=== PATIENT | male | born 1955 | race Caucasian/White ===

== ENCOUNTER 2020-09-03 22:35 | Emergency (ER) | payer MEDICARE, OTHER, SELFPAY ==
[2020-09-03 22:36] VITALS: BP 170/85; PULSE 108; RESP 27; TEMP 37.1; O2SAT 98; BMI 31.8
[2020-09-03 22:41] VITALS: BP 170/85; PULSE 107; RESP 25; TEMP 37.1; O2SAT 99
--- NOTE | 2020-09-03 23:07 | RAD_ITS ---
HISTORY: SOBHX OF COPD EXAM: XR Chest 1 View: COMPARISON: None FINDINGS: # of images incl. paperwork: 1 Some prominent interstitial markings are mild. There may be a paucity of peripheral parenchymal pulmonary perfusion within the lung apices Heart is not enlarged. No acute osseous pathology perceived. Pulmonary vascularity is distinct. No effusions. RAD/Chest 1 View (Portable) IMPRESSION: No acute cardiopulmonary disease. Obstructive lung disease. at 0013 Reported and signed by: Santos Valerio MD Electronically Signed: Santos Valerio MD at 0:12 EDT Tel , Service support ,
--- NOTE | 2020-09-03 23:08 | EKG12_ITS ---
Test Reason : SOB Blood Pressure : / mmHG Vent. Rate : 106 BPM Atrial Rate : 106 BPM P-R Int : 146 ms QRS Dur : 096 ms QT Int : 314 ms P-R-T Axes : 079 078 028 degrees QTc Int : 417 ms Sinus tachycardia Otherwise normal ECG Confirmed by DENNIS FALLON, JN ([id number]), material expeditor GILA PEREZ ([id number]) on 09/09/2020 11:55:00 AM Referred By: Confirmed By:JN COLLINS MD
[2020-09-03] MEDS: Ipratropium/Albuterol Sulfate 3 ML AMPUL.NEB INHALATION (23:15)
[2020-09-03] MEDS: Albuterol 2.5 MG/3 ML VIAL.NEB. INHALATION ×2 (23:15→23:16)
[2020-09-03 23:16] VITALS: PULSE 101; RESP 20
[2020-09-03 23:19] LABS: Absolute Lymphocyte Count 0.33 X10^3/uL (0.83-4.51); Absolute Neutrophil Count 9.5 X10^3/uL (2.0-7.7); Basophil# 0.01 X10^3/uL; Basophil% 0.1 % (0-1); Eosinophil# 0.03 X10^3/uL; Eosinophils% 0.3 % (0-5); Hematocrit 49.4 % (40-54); Hemoglobin 14.6 g/dL (13.0-16.5); Lymphocyte # 0.33 X10^3/ul (4.0); Lymphocyte % 3.1 % (19-41); Mean Corp Hgb Conc 29.6 g/dL (32-36); Mean Corpuscular Hgb 28.5 pg (27.0-32.0); Mean Corpuscular Volume 96.3 fL (80-94); Mean Platelet Vol. 9.6 fl (6.2-12.0); Monocyte# 0.59 X10^3/uL; Monocyte% 5.6 % (0-10); NRBC Flagged by Analyzer 0 % (0-5); Neutrophil % 90.3 % (47-70); POSITIVE DIFFERENTIAL YES; Platelet Count 295 K/mm3 (150-450); RBC Distribution Width CV 13.7 % (11.6-14.6); RBC Distribution Width SD 48.2 fl (35.1-43.9); Red Blood Count 5.13 M/mm3 (4.6-6.2); White Blood Count 10.5 K/mm3 (4.4-11.0)
[2020-09-03 23:23] LABS: Differential Indicated SCAN CRITERIA MET
[2020-09-03 23:42] LABS: Anion Gap 3 (5-15); BUN 30 mg/dL (7-18); BUN/Creat Ratio 13.3 RATIO (10-20); Calcium,Total 9.7 mg/dL (8.5-10.1); Chloride 98 mmol/L (98-107); Creatinine, Serum 2.25 mg/dL (0.70-1.30); EST Glomerular Filtration Rate 31 mL/min (>60); Est Glom Filt Rate - Afr Amer 38 mL/min (>60); Estimated Creatinine Clearance 32.73 ml/min; Glucose 290 mg/dL (74-106); Potassium 5.6 mmol/L (3.5-5.1); Sodium Level 138 mmol/L (136-145)
[2020-09-03 23:47] LABS: Differential Comment SCANNED
[2020-09-03] MEDS: MethylPREDNISolone 125 MG/2 ML Vial IV (23:51)
[2020-09-04 01:01] VITALS: BP 140/68; PULSE 103; RESP 21; O2SAT 93
[2020-09-04] MEDS: 0.9% Normal Saline 1,000 ML 999 ML IV (01:09)
--- NOTE | 2020-09-04 01:39 | ED.VIS.GEN ---
History of Present Illness Chief Complaint: Shortness of Breath Informant: Patient Onset: Today Current Severity: Mild Maximum Severity: Moderate Narrative: Patient presents via EMS secondary to shortness of breath. He has a history of COPD and wears 2 L nasal cannula at rest, 4 L with exertion. He reports recently being hospitalized in [place] secondary to a COPD exacerbation. He has been home for the past 1 week. This evening he became short of breath similarly to his prior COPD exacerbations. He has not had fever or chills. He has not had significant cough. - Past Medical History (1) COPD (chronic obstructive pulmonary disease) Status: Chronic (2) Hypertension Status: Chronic (3) High cholesterol Status: Chronic (4) Diabetes Status: Chronic Past Medical History - Allergies and Home Meds Allergies/Adverse Reactions: Allergies No Known Allergies Allergy (Verified 04/03/16 23:48) Primary Care Physician: Tommy Cano [employer] SUPERVISOR, [employer]MENT SUPERVISOR-[employer] [Primary Care Provider] - Prior records reviewed: Yes Smoking Status: Current some day smoker Review of Systems General: Denies: Chills, Fever Eyes: Denies: Visual changes - bilaterally ENT: Denies: Bilateral ear pain Cardiovascular: Denies: Chest pain Respiratory: Reports: Dyspnea. Denies: Cough Gastrointestinal: Denies: Abdominal pain, Nausea, Vomiting, Diarrhea Genitourinary: Denies: Dysuria Musculoskeletal: Denies: Extremity Pain Hematologic: Denies: Easy bruising, Easy bleeding Allergy: Denies: Uticaria Physical Exam Vital Signs/Narrative: Vital Signs Temp Pulse Resp BP Pulse Ox 09/04/20 01:01 103 H 21 H 140/68 H 93 09/03/20 23:16 101 H 20 H 09/03/20 22:41 98.8 F 107 H 25 H 170/85 H 99 09/03/20 22:36 98.8 F 108 H 27 H 170/85 H 98 Inital Vital Signs reviewed: Yes General: Well nourished, Well developed Head: Normocephalic ENT: Moist mucous membranes Neck: Supple Cardiovascular: Regular rate, Regular rhythm Respiratory: No distress, - - Scant expiratory wheezes. Mild decreased air movement throughout. Abdomen: Soft, Nontender Extremities: Nontender Skin: Normal color Neurological: Alert, Oriented x3 Psychological: Normal affect Diagnostic/Tx/Re-eval Impressions Chest X-Ray 09/03/20 23:07 IMPRESSION: No acute cardiopulmonary disease. Obstructive lung disease. at 0013 Reported and signed by: Santos Valerio MD Electronically Signed: Santos Valerio MD at 0:12 EDT Tel , Service support , 09/03/20 23:07 Chest 1 View (Portable) [RAD] Stat Laboratory Results 09/03/20 09/03/20 09/04/20 22:21 Unknown 03:02 WBC 10.5 RBC 5.13 Hgb 14.6 Hct 49.4 MCV 96.3 H MCH 28.5 MCHC 29.6 L RDW Std Deviation 48.2 H RDW Coeff of Ifeanyi 13.7 Plt Count 295 MPV 9.6 Immature Gran % (Auto) 0.600 Neut % (Auto) 90.3 H Lymph % (Auto) 3.1 L Forest % (Auto) 5.6 Eos % (Auto) 0.3 Baso % (Auto) 0.1 Absolute Neuts (auto) 9.5 H Absolute Lymphs (auto) 0.33 L Nucleated RBC % 0 Differential Comment SCANNED Sodium 138 138 Potassium 5.6 H 4.9 Chloride 98 100 Carbon Dioxide 37.0 H 35.0 H Anion Gap 3 L 3 L BUN 30 H 33 H Creatinine 2.25 H 2.01 H Estim Creat Clear Calc 32.73 36.64 Est GFR (MDRD) Af Amer 38 L 43 L Est GFR (MDRD) Non-Af 31 L 36 L BUN/Creatinine Ratio 13.3 16.4 Glucose 290 H 250 H Calcium 9.7 8.7 Troponin I < 0.015 - EKG Initial EKG Interpretation: Sinus Tachycardia - Sinus tachycardia at 106 with no acute ischemia. - Medical Decision Making Patient was given Solu-Medrol along with a DuoNeb followed by 2 albuterol treatments. On repeat evaluation he is resting comfortably and states he feels back to his baseline self. I was able to review prior blood work from [place]. Previous creatinine was 2.0 on the 15th. Patient is given a liter IV fluid secondary to his bump in creatinine and potassium. There are no EKG changes associated with his potassium of 5.6. Repeat BMP after a liter of IV fluid does show improvement in his creatinine as well as potassium. Patient will be treated with steroids. He has an appointment with his sales vice president tomorrow. He will be discharged home at this time. Patient is comfortable this plan and all questions have been answered. ED Disposition - Plan for ED Patient: Disposition: Home or Assisted Living Diagnosis: COPD exacerbation Instructions: ED COPD Flare Prescriptions: Prednisone 10 mg PO UD #33 tablet Referrals: Tommy Cano NP, [employer] SUPERVISOR-[employer] [Primary Care Provider] - Additional Instructions: Follow-up with your sales vice president tomorrow as scheduled.
[2020-09-04 03:03] VITALS: BP 143/64; PULSE 98; RESP 18; TEMP 36.8; O2SAT 97
[2020-09-04 03:20] LABS: Anion Gap 3 (5-15); BUN 33 mg/dL (7-18); BUN/Creat Ratio 16.4 RATIO (10-20); Calcium,Total 8.7 mg/dL (8.5-10.1); Chloride 100 mmol/L (98-107); Creatinine, Serum 2.01 mg/dL (0.70-1.30); EST Glomerular Filtration Rate 36 mL/min (>60); Est Glom Filt Rate - Afr Amer 43 mL/min (>60); Estimated Creatinine Clearance 36.64 ml/min; Glucose 250 mg/dL (74-106); Potassium 4.9 mmol/L (3.5-5.1); Sodium Level 138 mmol/L (136-145)
[2020-09-04 03:51] VITALS: BP 149/62; PULSE 81; RESP 17; O2SAT 96
== END 2020-09-04 04:17 | disposition home or self-care (01) ==
PROVIDERS: Emergency Provider Emergency Medicine; PCP Nurse Practitioner Family
DX: J44.1 Chronic obstructive pulmonary disease with (acute) exacerbation (principal); I10 Essential (primary) hypertension; E11.9 Type 2 diabetes mellitus without complications; E78.00 Pure hypercholesterolemia, unspecified; F17.200 Nicotine dependence, unspecified, uncomplicated; Z79.82 Long term (current) use of aspirin; Z79.4 Long term (current) use of insulin; Z79.899 Other long term (current) drug therapy
CPT/HCPCS: 36415; 71045; 80048; 84484; 85025; 93005; 94640; 96361; 96374; 99285; J7030; A4216